=== PATIENT | female | born 2000 | race Caucasian/White ===

== ENCOUNTER 2018-09-25 05:53 | Emergency (ER) | payer SELFPAY ==
--- NOTE | 2018-09-25 06:15 | ED Physician Documentation ---
General Adult - HPI Stated Complaint: bad trip on acid Chief Complaint: General Adult Additional Information: [facility] being found walking [address] barefoot wearing a tank top and sweats. Patient states she took a hit of acid around 10:00 pm last night and smoked some marijuana. She states she had a bad trip. She remembers being in her car and vomiting. Her car smelled like vomit so she got out and started walking. [facility] patrol picked her up and brought her to the ED for confinement clearance. Onset: hours (8) Timing: better Severity: moderate - ROS CONST: denies: fever EYES/ENT: denies: problems with vision CVS/RESP: denies: chest pain, shortness of breath, cough GI/: vomiting, nausea. denies: abdominal pain MS/SKIN/LYMPH: denies: leg swelling NEURO/PSYCH: denies: headache, tingling, difficulty with speech - PAST HX Past History: none Other History: none Surgeries/Procedures: none - SOCIAL HX Smoking History: non-smoker Alcohol Use: occasionally Drug Use: marijuana - FAMILY HX Family History: No - REVIEWED ASSESSMENTS Nursing Assessment Reviewed: Yes Vitals Reviewed: Yes General Adult Physical Exam - PHYSICAL EXAM GENERAL APPEARANCE: no distress EENT: CHACORTA (pupils dilated ) NECK: normal inspection RESPIRATORY: no resp distress, breath sounds normal CVS: heart sounds normal, tachycardia ABDOMEN: soft, normal bowel sounds. No: tenderness BACK: normal inspection. No: no CVA tenderness SKIN: warm/dry, normal color EXTREMITIES: no evidence of injury, no edema (feet covered in mud) NEURO: oriented X3, CN's nml as tested, motor nml Discharge Clincal Impression: Medical clearance for incarceration Condition: Stable Disposition: 01 HOME, SELF-CARE Decision to Admit: NO Date of Decison to Admit: 09/25/18 Decision Time: 06:35
[2018-09-25 06:53] VITALS: BP 106/69
== END 2018-09-25 06:45 | disposition home or self-care (01) ==
LOC: ED 05:53
DX: Z02.89 Encounter for other administrative examinations (principal)
CPT/HCPCS: 99281; 99282